=== PATIENT | male | born 1985 | race Two or more races ===

== ENCOUNTER 2016-11-24 13:21 | Emergency (ER) | payer MEDICAID, OTHER ==
[~2016-11-24] VITALS: Ht 180.3 cm; Wt 81.6 kg
[2016-11-24] MEDS ORDERED: PIPERACILLIN /TAZOBACTAM 3.375 G in IV D5W 50 ML IV ONE (13:30)
[2016-11-24] MEDS ORDERED: VANCOMYCIN 1 GM in IV D5W 250 ML IV ONE (13:30)
[2016-11-24] MEDS ORDERED: IV NS 0.9% 1,000 ML BAG IV ONE (13:30)
[2016-11-24] MEDS ORDERED: CLINDAMYCIN IV RTU IN D5W 900 MG/50 ML PIGGYBACK IV ONE (13:30)
--- NOTE | 2016-11-24 13:30 | NUR ---
PT BIB RA IN CUSTODY C/O [place] UPPER ARM WOUNDS WITH EXUDATE AND FOUL ODOR X "MONTHS". PT REPORTS THEY ARE D/T HEROIN INJECTIONS. DENIES FEVER, CHILLS. RESP EVEN UNLABORED. SKIN WARM NONDIAPHORETIC. A/OX4. IN ER BED 12 ON MONITOR.
--- NOTE | 2016-11-24 13:47 | NUR ---
UNABLE TO OBTAIN IV ACCESS. CONVEYOR LINE BAKERY WORKER FELECIA UNABLE TO DO BLOOD DRAW. DIRECTOR [employer] NOTIFIED.
--- NOTE | 2016-11-24 13:55 | NUR ---
DEGRASSE IRON CUTTER UNABLE TO START EJ IV. VERBAL ORDER RECIEVED FOR MIDLINE.
--- NOTE | 2016-11-24 14:13 | NUR ---
CALLED NURSING STOPER FOR MIDLINE REQUEST.
--- NOTE | 2016-11-24 15:20 | NUR ---
NAD NOTED. RESTING CALMLY. VSS. 3 RNS AND DEGRASSE DIGITAL COLOR PRESS OPERATOR ALL TRIED TO START IV AND DRAW BLOOD. DIGITAL COLOR PRESS OPERATOR DEGRASSE SUCCESSFULLY STARTED 24G IV ON R FOOT BUT UNABLE TO DRAW ALL TUBES.
[2016-11-24 15:22] LABS: BASOPHILS # (AUTO) 0.1 /CMM (0.0-0.2); BASOPHILS % (AUTO) 0.8 % (0.0-2.0); EOSINOPHILS # (AUTO) 0.1 /CMM (0.0-0.7); EOSINOPHILS % (AUTO) 1.3 % (0.0-6.0); HEMATOCRIT 27 % (39-51); HEMOGLOBIN 8.4 g/dL (13.5-17.5); LYMPHOCYTES # (AUTO) 1.3 /CMM (0.8-4.8); LYMPHOCYTES % (AUTO) 19.4 % (20.0-44.0); MEAN CORPUSCULAR HEMOGLOBIN 22 PG (26.0-33.0); MEAN CORPUSCULAR HGB CONC 32 g/dl (31.0-36.0); MEAN CORPUSCULAR VOLUME 70 fL (80-96); MONOCYTES # (AUTO) 0.5 /CMM (0.1-1.30); MONOCYTES % (AUTO) 7.8 % (2.0-12.0); NEUTROPHILS # (AUTO) 4.5 /CMM (1.8-8.9); NEUTROPHILS % (AUTO) 70.7 % (43.0-81.0); PLATELET COUNT (AUTO) 379 /CMM (150-450); RDW COEFFICIENT OF VARIATION 16.4 (11.5-15.0); RED BLOOD CELL COUNT(AUTO) 3.84 MIL/uL (4.5-6.0); WHITE BLOOD COUNT (AUTO) 6.5 K/uL (4.3-11.0)
--- NOTE | 2016-11-24 15:50 | NUR ---
Patient does not wish to proceed with medical care recommended by Shelbi Trinidad NP. Patient given information related to possible complications, up to and including , which could occur as a result of leaving the hospital at this time. Patient verbalizes understanding of risks involved due to leaving against medical advice. Patient has signed AMA form. IV removed. Catheter intact and site benign. Pressure and 4x4 applied to site. No bleeding noted. Ambulatory with steady gait.
[2016-11-24 15:53] VITALS: BP 139/75
== END 2016-11-24 15:54 | disposition left against medical advice (07) ==
LOC: ER 13:23
DX: L03.114 Cellulitis of left upper limb (principal); L03.113 Cellulitis of right upper limb
CPT/HCPCS: 36415; 71010-TC; 85025-TC; J2543; J3370; J3490; J7060

== ENCOUNTER 2017-01-05 00:23 | Emergency (ER) | payer SELFPAY ==
[~2017-01-05] VITALS: Ht 193 cm; Wt 81.6 kg
--- NOTE | 2017-01-05 00:25 | NUR ---
pt yarara from a friend house. friend called 911 for possible heroin overdose. pt is awake and verbally responsive finance attorney. presents w/ bilateral upper arm wound from iv/im drug use. gowned and placed on monitor. stable vitals at this time. awaiting md pino.
--- NOTE | 2017-01-05 00:57 | NUR ---
dr gallegos at bedside for eval.
[2017-01-05] MEDS ORDERED: SULFAMETH/TRIMETH 800/160 MG 1 UDTAB TABLET PO ONE ×2 (01:00→01:01)
--- NOTE | 2017-01-05 01:01 | NUR ---
pd at bedside talking to patient.
--- NOTE | 2017-01-05 01:31 | NUR ---
wound care provided. pt was advised to see pmd and to have wound debridement done. Patient discharged to home in stable condition. Written and verbal after care instructions given. Patient verbalizes understanding of instruction.
[2017-01-05 01:34] VITALS: BP 128/67
== END 2017-01-05 01:34 | disposition home or self-care (01) ==
LOC: ER 00:24
DX: F11.90 Opioid use, unspecified, uncomplicated (principal); L98.499 Non-pressure chronic ulcer of skin of other sites with unspecified severity; M32.9 Systemic lupus erythematosus, unspecified
CPT/HCPCS: 99283; A4606; A6403; Z7610